=== PATIENT | male | born 1955 | race Caucasian/White ===

== ENCOUNTER → 2023-07-27 19:57 | Outpatient (REF) | payer OTHER, SELFPAY | LOC: MRI 3T 19:57 | PROVIDERS: ATTENDING PHYSICIAN Specialist; FAMILY PHYSICIAN Student in an Organized Health Care Education/Training Program | DX: R97.20 Elevated prostate specific antigen [PSA] (principal); Z80.42 Family history of malignant neoplasm of prostate | CPT/HCPCS: 72197; A9575 ==

== ENCOUNTER 2023-10-30 14:13 | Outpatient (RCR) | payer OTHER, SELFPAY | END 2023-10-30 23:59 | disposition home or self-care (01) | LOC: RPT 14:13 | PROVIDERS: ATTENDING PHYSICIAN Urology; FAMILY PHYSICIAN Student in an Organized Health Care Education/Training Program | DX: R32 Unspecified urinary incontinence (principal); M62.838 Other muscle spasm; C61 Malignant neoplasm of prostate; Z73.6 Limitation of activities due to disability; Z48.816 Encounter for surgical aftercare following surgery on the genitourinary system; Z98.890 Other specified postprocedural states | CPT/HCPCS: 97110; 97162; 97530 ==

== ENCOUNTER 2023-11-28 12:52 | Outpatient (RCR) | payer OTHER, SELFPAY | END 2023-11-28 23:59 | disposition home or self-care (01) | LOC: RPT 12:52 | PROVIDERS: ATTENDING PHYSICIAN Urology; FAMILY PHYSICIAN Student in an Organized Health Care Education/Training Program | DX: N39.498 Other specified urinary incontinence (principal); M62.81 Muscle weakness (generalized); Z98.890 Other specified postprocedural states; R10.2 Pelvic and perineal pain | CPT/HCPCS: 97110; 97112; 97140; 97530 ==

== ENCOUNTER 2023-12-12 12:51 | Outpatient (RCR) | payer OTHER, SELFPAY | END 2023-12-14 06:41 | disposition home or self-care (01) | LOC: RPT 12:51 | PROVIDERS: ATTENDING PHYSICIAN Urology; FAMILY PHYSICIAN Student in an Organized Health Care Education/Training Program | DX: C61 Malignant neoplasm of prostate (principal); Z73.6 Limitation of activities due to disability | CPT/HCPCS: 97110; 97112; 97140; 97530 ==